=== PATIENT | male | born 1965 | race Caucasian/White ===

== ENCOUNTER 2016-06-14 10:13 | Emergency (ER) | payer BC ==
[~2016-06-14] VITALS: Ht 180.3 cm; Wt 104.0 kg
[2016-06-14 11:04] LABS: HEMATOCRIT 45.1 % (39.0-50.0); HEMOGLOBIN 16.1 g/dl (14.0-18.0); IMMATURE GRANULOCYTES 0.6 % (0.0-1.0); MEAN CELL VOLUME 87.1 fL CALC (80.0-100.0); MEAN CORPUSCULAR HGB 31.1 pG CALC (26.0-32.0); MEAN CORPUSCULAR HGB CONC 35.7 g/L CALC (32.0-36.0); NEUT# 5.03 thou/uL (1.82-7.42); RED BLOOD COUNT 5.18 mill/uL (4.70-6.10); RED CELL DISTRI WIDTH 12.3 % (11.5-15.5)
[2016-06-14 11:16] LABS: ALBUMIN 4.6 g/dL (3.2-5.0); ALKALINE PHOSPHATASE 71 u/l (38-126); ANION GAP 16 (6-22 (CALC)); BILIRUBIN, TOTAL 0.8 mg/dL (0.0-1.4); BUN 13 mg/dL (9-20); BUN/CREATININE RATIO 14 (12-20 (CALC)); CARBON DIOXIDE 26 mmol/l (22-30); CHLORIDE 104 mmol/l (95-108); CREATININE 0.9 mg/dL (0.7-1.3); GFR > 60 ML/MIN (>=60 (CALC)); GFR FOR AFR.AMER. > 60 ML/MIN (>=60 (CALC)); GLUCOSE 91 mg/dL (75-110); SGOT/AST 50 u/l (17-59); SGPT/ALT 86 u/l (21-72); SODIUM 142 mmol/l (137-146); TOTAL PROTEIN 8.1 g/dL (6.3-8.2)
[2016-06-14 11:30] LABS: MYOGLOBIN 50 ng/mL (0 - 121)
[2016-06-14] MEDS ORDERED: ZESTRIL10 M1 PO (12:00)
[2016-06-14 12:05] VITALS: BP 139/93
== END 2016-06-14 12:45 | disposition home or self-care (01) | DRG 305 ==
LOC: ED 10:13
PROVIDERS: Emergency Medicine
DX: I10 Essential (primary) hypertension (principal)